=== PATIENT | male | born 1960 | race American Indian/Alaskan Native ===

== ENCOUNTER 2019-09-15 00:11 | Emergency (ER) | payer SELFPAY | END 2019-09-15 08:47 | disposition left against medical advice (07) | LOC: ED 00:11 | DX: M79.605 Pain in left leg (principal); Z53.21 Procedure and treatment not carried out due to patient leaving prior to being seen by health care provider ==

== ENCOUNTER 2020-07-04 17:22 | Emergency (ER) | payer SELFPAY ==
[2020-07-04] MEDS ORDERED: LIDOCAINE 1%/EPINEPHRINE 1:100,000 VIAL (20 ML) INFILTRATI ONE ×2 (17:24→17:54)
--- NOTE | 2020-07-04 17:48 | Emergency Department Report ---
HPI - General Time Seen by Provider: 07/04/20 17:45 - HPI HPI: This is a 60-year-old male, who is right-hand dominant, who presents to the emergency department with complaint of a laceration to the left wrist that occurred just prior to presentation. The patient was trying to sever a zip tie from some part of his friend's car, to assist a friend, and he accidentally cut his wrist with a knife. Patient says that there was a moderate amount of bleeding that he stopped with wrapping tape around his wrist. He denies any numbness, paresthesias, or restriction to range of motion. He denies any past medical history. He last had a tetanus vaccination about 1 year ago. ED Past Medical Hx - Social History Smoking Status: Never Smoker Substance Use Type: None - Medications Home Medications: Home Medications Medication Instructions Recorded Confirmed Last Taken Type Albuterol Mdi (or & Nicu Only) 2 puff IH QID PRN #1 inhalation 12/10/15 Unknown Rx [ProAir HFA Inhaler] predniSONE [Deltasone] 20 mg PO BID #10 tab 12/10/15 Unknown Rx ED Review of Systems ROS: Stated complaint: LT WRIST/HAND INJURY LAC Other details as noted in HPI Comment: All other systems reviewed and negative Constitutional: denies: chills, fever Musculoskeletal: arthralgia Skin: other (left wrist laceration). denies: rash Physical Exam - Physical Exam Physical Exam: GENERAL: The patient is well-developed well-nourished. HENT: Normocephalic. Atraumatic. Patient has moist mucous membranes. EYES: Extraocular motions are intact. NECK: Supple. Trachea is midline. CHEST/LUNGS: Clear to auscultation. There is no respiratory distress noted. HEART/CARDIOVASCULAR: Regular. There is no tachycardia. There is no murmur. SKIN: Skin is warm and dry. There is a laceration to the distal volar left forearm at the wrist that is about 8 cm in its greatest diameter. When the skin flap is retracted there appears to be some mild volume loss and there is oozing of venous blood distally. NEURO: The patient is awake, alert, and oriented. The patient is cooperative. The patient has no focal neurologic deficits. Normal speech. MUSCULOSKELETAL: There is tenderness to palpation to the distal left forearm and wrist where the patient has a laceration. +2/4 radial pulse and capillary refill less than 2 seconds to the fingers. There is no limitation range of motion. - Laceration /Wound Repair Left Wrist Wound Location: upper extremity Wound Length (cm): 8 Wound's Depth, Shape: flap Wound Explored: no foreign body removed Irrigated w/ Saline (ccs): 50 Anesthesia: Lidocaine w/ Epi Volume Anesthetic (ccs): 4 Wound Repaired With: sutures Suture Size/Type: 5:0, proline Number of Sutures: 9 Layer Closure?: No Sterile Dressing Applied?: Yes ED Medical Decision Making - Medical Decision Making Patient presents with a left distal forearm/wrist laceration. There is no foreign body seen. No pulsatile bleeding. The patient is neurovascularly intact with full range of motion, +2/4 radial pulses, distal capillary refill less than 2 seconds. The laceration was repaired as per the procedure section. Bleeding appears to have stopped and there are no signs of any hematoma. A sterile dressing was placed and then the patient was placed in a volar splint. Sutures will be removed in about 10 days. Critical Care Time: No Critical care attestation.: If time is entered above; I have spent that time in minutes in the direct care of this critically ill patient, excluding procedure time. ED Disposition Clinical Impression: Laceration of left wrist Qualifiers: Encounter type: initial encounter Qualified Code(s): S61.512A - Laceration without foreign body of left wrist, initial encounter Disposition: TO HOME OR SELFCARE Is pt being admited?: No Condition: Stable Instructions: Laceration Care, Adult, Sutured Wound Care, Sutures, [place], or Adhesive Wound Closure Additional Instructions: The sutures will need to be removed in about 10 days. This can be done at a primary care office, urgent care, or in the emergency department. Keep the bandage and splint on for the next 24 hours. I suggest that you use the splint over the next 3 days, but after 24 hours it can be removed to clean the area and change bandages. Clean the area twice per day with soap and water and then make sure it remains dry. Clean the area more often if it becomes dirty or sweaty. Return to the closest emergency department with any signs and symptoms of infection such as increased pain, swelling, surrounding redness, development of fever, or discharge of pus, or with any acute distress. Referrals: PCP, Your [Other] - 3-5 Days Time of Disposition: 18:40
[2020-07-04 18:04] VITALS: BP 123/76
== END 2020-07-04 19:05 | disposition home or self-care (01) ==
LOC: ED 17:22
DX: S61.512A Laceration without foreign body of left wrist, initial encounter (principal); Z79.899 Other long term (current) drug therapy; Z88.6 Allergy status to analgesic agent; Z91.018 Allergy to other foods; W26.0XXA Contact with knife, initial encounter; Y93.89 Activity, other specified; Y92.89 Other specified places as the place of occurrence of the external cause; Y99.8 Other external cause status

== ENCOUNTER 2020-07-13 10:10 | Emergency (ER) | payer OTHER ==
[2020-07-13 10:24] VITALS: BP 117/91
--- NOTE | 2020-07-13 11:39 | Emergency Department Report ---
Suture/Staple Removal - [facility] Chief Complaint: Laceration/Recheck/Suture Stated Complaint: SUTURE REMOVAL Time Seen by Provider: 07/13/20 11:27 When Sutures or Jadiel Placed: 07/04/20 Wound Location: left anterior wrist ED Review of Systems ROS: Stated complaint: SUTURE REMOVAL Other details as noted in HPI Comment: All other systems reviewed and negative ED Past Medical Hx - Past Medical History Previous Medical History?: No - Surgical History Past Surgical History?: No - Social History Smoking Status: Never Smoker Substance Use Type: None - Medications Home Medications: Home Medications Medication Instructions Recorded Confirmed Last Taken Type Albuterol Mdi (or & Nicu Only) 2 puff IH QID PRN #1 inhalation 12/10/15 Unknown Rx [ProAir HFA Inhaler] predniSONE [Deltasone] 20 mg PO BID #10 tab 12/10/15 Unknown Rx Mupirocin [Bactroban 2% OINT] 1 applic TP TID #1 tube 07/13/20 Unknown Rx Sulfamethoxazole/Trimethoprim 1 each PO BID 7 Days #14 tablet 07/13/20 Unknown Rx [Bactrim DS TAB] Suture Removal Exam - Exam General: Vital signs noted. No distress. Alert and acting appropriately. Wound: Yes Tenderness (mild ttp overlying the suture region), Yes Pus (there is a small amount of purulent drainage), Yes Wound Dehiscence (there is a 0.5 cm area of wound dehiscence), No Pathologic Erythema Other Systems: All other systems reviewed and are unremarkable. ED Course Vital Signs 07/13/20 10:20 Temperature 98.7 F Pulse Rate 86 Respiratory 17 Rate Blood Pressure 117/91 O2 Sat by Pulse 94 Oximetry ED Recheck MDM - Medical Decision Making Patient is a 60-year-old male who presents emergency room with complaints of a suture removal. Patient states that he accidentally cut himself with a jukebox coin collector and presented on 07/04/2020 to the emergency room at that time and had a suture repair. He states he received a tetanus immunization on the emergency department. He states he has noticed a small amount of drainage from the area and he does have some mild pain. He denies any fever, chills, vomiting, diarrhea, difficulty moving the wrist, swelling of the wrist. No past medical history. Allergy to morphine. On exam there is a 0.5 cm area of wound dehiscence, no significant surrounding erythema. Removed every other suture, upon removing one of the sutures there was a small amount of purulent drainage expressed. will leave the rest of the sutures in place. No signs of an abscess at this time. Patient will be placed on antibiotics and given topical antibiotics. Advised patient to please use medication as prescribed. Please keep area clean, dry, covered. Wash with antibacterial soap and water twice a day and pat dry. No hot tub, no pool, no soaking in water. Follow-up with your primary care doctor for reexamination. Sutures will need to be removed in the next 5 to 7 days. Return to emergency room for any new or worsening symptoms. Critical care attestation.: If time is entered above; I have spent that time in minutes in the direct care of this critically ill patient, excluding procedure time. ED Disposition Clinical Impression: Encounter for removal of sutures Cellulitis Qualifiers: Site of cellulitis: extremity Site of cellulitis of extremity: upper extremity Laterality: left Qualified Code(s): L03.114 - Cellulitis of left upper limb Disposition: TO HOME OR SELFCARE Is pt being admited?: No Does the pt Need Aspirin: No Condition: Stable Instructions: Cellulitis, Adult, Suture Removal, Care After Additional Instructions: please use medication as prescribed. Please keep area clean, dry, covered. Wash with antibacterial soap and water twice a day and pat dry. No hot tub, no pool, no soaking in water. Follow-up with your primary care doctor for reexamination. Sutures will need to be removed in the next 5 to 7 days. Return to emergency room for any new or worsening symptoms. Prescriptions: Sulfamethoxazole/Trimethoprim [Bactrim DS TAB] 1 each PO BID 7 Days #14 tablet Mupirocin [Bactroban 2% OINT] 1 applic TP TID #1 tube Referrals: your, primary care doctor [Other] - 3-5 Days Time of Disposition: 11:42 Print Language: FRISIAN
== END 2020-07-13 12:26 | disposition home or self-care (01) ==
LOC: ED 10:10
DX: L03.114 Cellulitis of left upper limb (principal); Z48.02 Encounter for removal of sutures; Z79.899 Other long term (current) drug therapy; Z88.6 Allergy status to analgesic agent; Z88.8 Allergy status to other drugs, medicaments and biological substances
CPT/HCPCS: 99282